=== PATIENT | female | born 1960 | race Caucasian/White ===

== ENCOUNTER 2021-12-26 13:39 | Outpatient (CLI) | payer BC | END 2021-12-26 13:40 | disposition home or self-care (01) | LOC: CSHMAMMO 13:39 | PROVIDERS: ATTEND Internal Medicine | DX: Z12.31 Encounter for screening mammogram for malignant neoplasm of breast (principal); Z80.3 Family history of malignant neoplasm of breast | CPT/HCPCS: 77063; 77067 ==

== ENCOUNTER 2024-06-26 09:56 | Outpatient (CLI) | payer MEDICARE | END 2024-06-26 09:57 | disposition home or self-care (01) | LOC: CSHMAMMO 09:56 | PROVIDERS: ATTEND Internal Medicine | DX: M85.89 Other specified disorders of bone density and structure, multiple sites (principal) | CPT/HCPCS: 77080 ==